=== PATIENT | female | born 1940 | race Caucasian/White ===

== ENCOUNTER 2020-07-06 12:10 | Day surgery (SDC) | payer MEDICARE, OTHER ==
[2020-07-06] MEDS ORDERED: BUPIVACAINE 0.5% VIAL IJ ONE (12:11)
[2020-07-06] MEDS ORDERED: DIPRIVAN 200 MG/20 ML IV ONE (12:11)
[2020-07-06] MEDS ORDERED: Ketamine HCl 50 MG/ML IV ONE (12:11)
[2020-07-06] MEDS ORDERED: Lactated Ringers 1,000 ML IV ONE (14:27)
--- NOTE | 2020-07-06 15:02 | XRAY ---
27 seconds fluoroscopy time in surgery for left genicular nerve block.
--- NOTE | 2020-07-06 15:12 | XRAY ---
Indication: Left knee genicular nerve block. Intraoperative fluoroscopy was provided for 27 seconds. 3 digital spot images of the left knee submitted for interpretation demonstrates anterior needle tips projecting medial/lateral supracondylar and medial tibial plateau. Correlate with intraoperative findings/report. Incidental partially visualized total knee arthroplasty.
== END 2020-07-06 14:25 | disposition home or self-care (01) ==
LOC: SDC-PAIN 12:10
PROVIDERS: ATTEND Psychiatry & Neurology Pain Medicine
DX: M17.12 Unilateral primary osteoarthritis, left knee (principal); E03.9 Hypothyroidism, unspecified; I12.9 Hypertensive chronic kidney disease with stage 1 through stage 4 chronic kidney disease, or unspecified chronic kidney disease; N18.9 Chronic kidney disease, unspecified; J44.9 Chronic obstructive pulmonary disease, unspecified; F41.8 Other specified anxiety disorders; G47.00 Insomnia, unspecified; M79.7 Fibromyalgia; Z86.718 Personal history of other venous thrombosis and embolism; Z79.899 Other long term (current) drug therapy
CPT/HCPCS: 64454; 73560; 77002; J2704

== ENCOUNTER 2022-02-08 11:56 | Day surgery (SDC) | payer MEDICARE, OTHER ==
[2022-02-08] MEDS ORDERED: BUPIVACAINE 0.5% VIAL IJ ONE (11:57)
[2022-02-08] MEDS ORDERED: Depo-Medrol 40 MG/ML IM ONE (11:57)
[2022-02-08] MEDS ORDERED: Lactated Ringers 1,000 ML IV ONE (13:56)
[2022-02-08] MEDS ORDERED: DIPRIVAN 200 MG/20 ML IV ONE (13:59)
--- NOTE | 2022-02-08 14:47 | XRAY ---
Indication: Right hip and greater trochanter bursa injections. Intraoperative fluoroscopy provided for 22 seconds. 2 digital spot image submitted for interpretation demonstrates needle tip projecting lateral to right femur neck and lateral to greater trochanter. Small amount of contrast injected for both needle tip placement. Correlate with intraoperative findings/report.
--- NOTE | 2022-02-08 15:33 | XRAY ---
22 seconds of fluoroscopy was used in surgery for a right hip greater trochanteric bursa and intra-articular injections.
== END 2022-02-08 14:10 | disposition home or self-care (01) ==
LOC: SDC-PAIN 11:56
PROVIDERS: ATTEND Psychiatry & Neurology Pain Medicine
DX: M16.11 Unilateral primary osteoarthritis, right hip (principal); M70.61 Trochanteric bursitis, right hip; I10 Essential (primary) hypertension; Z79.899 Other long term (current) drug therapy
CPT/HCPCS: 20610; 73502; 77002; J1030; J2704; Q9966

== ENCOUNTER 2022-12-05 10:06 | Day surgery (SDC) | payer MEDICARE, OTHER | END 2022-12-05 10:30 | disposition home or self-care (01) | LOC: SDC-PAIN 10:06 | PROVIDERS: ATTEND Psychiatry & Neurology Pain Medicine | DX: Z53.8 Procedure and treatment not carried out for other reasons (principal) | CPT/HCPCS: 72100; 77003 ==

== ENCOUNTER 2023-05-08 10:57 | Day surgery (SDC) | payer MEDICARE, OTHER ==
[2023-05-08] MEDS ORDERED: BUPIVACAINE 0.5% VIAL IJ ONE (10:58)
[2023-05-08] MEDS ORDERED: DIPRIVAN 200 MG/20 ML IV ONE (12:54)
--- NOTE | 2023-05-08 14:24 | XRAY ---
Indication: Left genicular knee. Intraoperative fluoroscopy provided for 19 seconds. 5 digital spot image submitted for interpretation demonstrate anterior needle tips projecting medial/lateral supracondylar and medial tibial plateau. Correlate with intraoperative findings/report. Incidental total knee arthroplasty.
[2023-05-08] MEDS ORDERED: Lactated Ringers 1,000 ML IV ONE (14:43)
--- NOTE | 2023-05-08 15:01 | XRAY ---
19 seconds of fluoroscopy was used in surgery for a left genicular knee injection.
== END 2023-05-08 13:20 | disposition home or self-care (01) ==
LOC: SDC-PAIN 10:57
PROVIDERS: ATTEND Psychiatry & Neurology Pain Medicine
DX: M17.12 Unilateral primary osteoarthritis, left knee (principal); Z79.899 Other long term (current) drug therapy
CPT/HCPCS: 64454; 73560; 77002; J2704